=== PATIENT | female | born 1975 | race Caucasian/White ===

== ENCOUNTER 2017-08-27 09:04 | Outpatient (CLI) | payer BC | END 2017-08-27 09:05 | disposition home or self-care (01) | LOC: BICMAMMO 09:04 | PROVIDERS: ATTEND Obstetrics & Gynecology | DX: Z12.31 Encounter for screening mammogram for malignant neoplasm of breast (principal) | CPT/HCPCS: 77063; 77067 ==

== ENCOUNTER 2025-04-20 10:32 | Outpatient (CLI) | payer BC | END 2025-04-20 10:33 | disposition home or self-care (01) | LOC: SCSRAD 10:32 | PROVIDERS: ATTEND Family Medicine | DX: M25.551 Pain in right hip (principal) ==